=== PATIENT | male | born 1995 | race American Indian/Alaskan Native ===

== ENCOUNTER 2017-02-04 12:16 | Emergency (ER) | payer SELFPAY ==
[2017-02-04 13:55] VITALS: BP 114/62
--- NOTE | 2017-02-04 16:08 | Emergency Department Report ---
ED Lower Extremity HPI - General Chief Complaint: Extremity Problem,Nontraumatic Stated Complaint: PAIN IN LEFT KNEE Time Seen by Provider: 02/04/17 15:59 Source: patient Mode of arrival: Ambulatory Limitations: No Limitations - History of Present Illness Initial Comments: Patient complaining of atraumatic left knee pain that he believes is caused by walking several miles a day. Patient denies fever, chills,or STD s/s. He should also denies cough, shortness of breath, or inspiratory chest pain. MD Complaint: knee injury -: Gradual Injury: Knee: Left Type of Injury: unknown Severity: moderate Severity scale (0 -10): 4 Improves With: nothing Worsens With: weight bearing, movement Associated Symptoms: ambulatory. denies: swelling, numbness, tingling, unable to bear weight, able to partially bear weight - Related Data Previous Rx's Medication Instructions Recorded Last Taken Type Promethazine [Phenergan] 25 mg PO Q6H PRN #14 tablet 07/27/13 Unknown Rx Ibuprofen [Motrin] 800 mg PO Q8HR PRN #15 tablet 02/04/17 Unknown Rx Allergies Allergy/AdvReac Type Severity Reaction Status Date / Time No Known Allergies Allergy Unverified 07/27/13 18:09 ED Review of Systems ROS: Stated complaint: PAIN IN LEFT KNEE Other details as noted in HPI Constitutional: denies: chills, fever, malaise Respiratory: denies: cough, orthopnea, shortness of breath, SOB with exertion, SOB at rest Cardiovascular: denies: chest pain, palpitations, edema, syncope Gastrointestinal: denies: nausea, vomiting Genitourinary: denies: dysuria, discharge, testicular pain Musculoskeletal: arthralgia. denies: joint swelling Skin: denies: rash, lesions ED Past Medical Hx - Past Medical History Previous Medical History?: No - Surgical History Past Surgical History?: No - Social History Smoking Status: Never Smoker Substance Use Type: None - Medications Home Medications: Home Medications Medication Instructions Recorded Confirmed Last Taken Type Promethazine [Phenergan] 25 mg PO Q6H PRN #14 tablet 07/27/13 Unknown Rx Ibuprofen [Motrin] 800 mg PO Q8HR PRN #15 tablet 02/04/17 Unknown Rx ED Physical Exam - General Limitations: No Limitations General appearance: alert, in no apparent distress - ENT ENT exam: Present: normal exam, mucous membranes moist - Neck Neck exam: Present: full ROM - Respiratory Respiratory exam: Absent: respiratory distress, wheezes - Cardiovascular Cardiovascular Exam: Present: regular rate - Expanded Lower Extremity Exam Left Hip exam: Present: normal inspection, full ROM Knee exam: Present: normal inspection, full ROM, full knee extension. Absent: tenderness, swelling, ecchymosis, deformity, crepidus, dislocation, erythema, effusion, pain w/ pronation/supination, posterior draw sign, pain/laxity with valgus, pain/laxity with varus Neuro vascular tendon exam: Present: no vascular compromise. Absent: pulse deficit, abnormal cap refill, motor deficit, sensory deficit, tendon deficit, abnormal 2-point discrimination, foot drop, significant pain with passive ROM of distal joint Gait: Positive: observed and normal ED Course Vital Signs 02/04/17 13:51 Temperature 98.2 F Pulse Rate 72 Blood Pressure 114/62 O2 Sat by Pulse 100 Oximetry Critical care attestation.: If time is entered above; I have spent that time in minutes in the direct care of this critically ill patient, excluding procedure time. ED Disposition Clinical Impression: Knee pain, left Disposition: DISCHARGED TO HOME OR SELFCARE Is pt being admited?: No Condition: Stable Instructions: Arthralgia (ED) Prescriptions: Ibuprofen [Motrin] 800 mg PO Q8HR PRN #15 tablet PRN Reason: Pain Referrals: PRIMARY MD LEXI [Primary Care Provider] - 3-5 Days NICOLE VICENTE MD [Staff Physician] - 3-5 Days
--- NOTE | 2017-02-04 16:51 | XRay Report ---
Left knee: Pain. There is a small suprapatellar effusion. No soft tissue swelling. The visualized bones and joints appear normal. Impression: Nonspecific small effusion.
== END 2017-02-04 16:56 | disposition home or self-care (01) ==
LOC: ED 12:16
DX: M25.562 Pain in left knee (principal)

== ENCOUNTER 2022-01-24 20:09 | Emergency (ER) | payer SELFPAY ==
[2022-01-24 21:26] VITALS: BP 145/84
== END 2022-01-25 01:30 | disposition left against medical advice (07) ==
LOC: ED 20:09
DX: Z11.3 Encounter for screening for infections with a predominantly sexual mode of transmission (principal); Z53.21 Procedure and treatment not carried out due to patient leaving prior to being seen by health care provider